=== PATIENT | female | born 1995 | race Caucasian/White ===

== ENCOUNTER 2018-07-09 20:41 | Emergency (ER) | payer SELFPAY ==
[2018-07-09 21:09] VITALS: BP 102/59
[2018-07-09 23:55] LABS: APPEARANCE,URINE CLEAR; BILIRUBIN,URINE NEGATIVE (NEGATIVE); COLOR,URINE YELLOW; GLUCOSE, URINE NEGATIVE (NEGATIVE); KETONES,URINE NEGATIVE (NEGATIVE); LEUKOCYTE ESTERASE,URINE NEGATIVE (NEGATIVE); NITRITE,URINE NEGATIVE (NEGATIVE); PROTEIN,URINE NEGATIVE (NEGATIVE); UROBILINOGEN,URINE NEGATIVE mg/dL (<2.0)
--- NOTE | 2018-07-10 00:12 | RADIOLOGY REPORT (SQ) ---
EXAM DESCRIPTION: US GREATER THAN 14 WEEKS COMPLETED DATE/TME: 07/09/2018 22:32 CLINICAL HISTORY: 22 years Female, abdominal pain in Comparison: None. TECHNIQUE/LIMITATION: Targeted OB sonogram for requested parameters only. FINDINGS: Cardiac activity: 152-bpm. ROBERT: 11.6-cm Placenta: Anterior. No evidence of abruption. No placenta previa. Cervical length: 3.1-cm. Closed appearance. IMPRESSION: Targeted OB sonogram for requested parameters
--- NOTE | 2018-07-10 00:32 | ER Document Report ---
ED General - General Chief Complaint: Pelvic Pain Stated Complaint: ABDOMINAL CRAMPING Time Seen by Provider: 07/09/18 22:25 Notes: Patient is 22-year-old female who is approximately 6 weeks . This is her third . She had a miscarriage early in the first trimester with one . Other went on to having normal vaginal delivery. She says that she is was having some pain earlier today. No vaginal bleeding. No fevers. No vomiting. She said the pain started after she was lifting something. She says now it time she moves or twists she has the same pain and some or in the lower abdomen or pelvic section. No abnormal vaginal discharge. Diarrhea. No urinary frequency. Past Medical History - Social History Smoking Status: Unknown if Ever Smoked Frequency of alcohol use: None Drug Abuse: None Family History: Reviewed & Not Pertinent Patient has suicidal ideation: No Patient has homicidal ideation: No Renal/ Medical History: Denies: Hx Peritoneal Dialysis Review of Systems - Review of Systems Notes: My Normal Review Basic REVIEW OF SYSTEMS: CONSTITUTIONAL : Denies fever, chills, or sweats. Denies recent illness. RESPIRATORY: Denies cough, cold, or chest congestion. Denies shortness of breath, difficulty breathing, or wheezing. GASTROINTESTINAL: Pain in lower abdomen.. Denies nausea, vomiting, or diarrhea. Denies constipation. Last BM: GENITOURINARY: Denies difficulty urinating, painful urination, burning, frequency, or blood in urine. FEMALE GENITOURINARY: Pain in lower abdomen and pelvic region. She is currently . No vaginal bleeding or discharge. MUSCULOSKELETAL: Denies neck or back pain or joint pain or swelling. SKIN: Denies rash or skin lesions. ALL OTHER SYSTEMS REVIEWED AND NEGATIVE. Physical Exam - Vital signs Vitals: Temp Pulse Resp BP Pulse Ox 98.1 F 87 18 102/59 L 100 07/09/18 21:08 07/09/18 21:08 07/09/18 21:08 07/09/18 21:08 07/09/18 21:08 - Notes Notes: General Appearance: Well nourished, alert, cooperative, no acute distress, no obvious discomfort. Well appearing. Vitals: reviewed, See vital signs table. Head: no swelling or tenderness to the head Eyes: PERRL, EOMI, Conjuctiva clear Mouth: No decreasd moisture Lungs: No wheezing, No rales, No rhonci, No accessory muscle use, good air exchange bilaterally. Heart: Normal rate, Regular rythm, No murmur, no rub Abdomen: Normal BS, soft, No rigidity, mild pain to the right and left the suprapubic region to palpation., No guarding, no rebound, no abdominal masses, no organomegaly Extremities: strength 5/5 in all extremities, good pulses in all extremities, no swelling or tenderness in the extremities, no edema. Skin: warm, dry, appropriate color, no rash Neuro: speech clear, oriented x 3, normal affect, responds appropriately to questions. Course - Re-evaluation Re-evalutation: 07/10/18 06:26 The patient safe to be discharged home. Patient is well-appearing. No significant pain on exam. Ultrasound is normal-appearing. Urinalysis negative. I encourage her to avoid sexual activity and heavy lifting. Encouraged her return to ER if she has any vaginal bleeding or increasing pain. Patient agrees with plan will be discharged home. Dictation of this chart was performed using voice recognition software; therefore, there may be some unintended grammatical errors. - Vital Signs Vital signs: Temp Pulse Resp BP Pulse Ox 98.1 F 87 18 102/59 L 100 07/09/18 21:08 07/09/18 21:08 07/09/18 21:08 07/09/18 21:08 07/09/18 21:08 - Laboratory Laboratory results interpreted by me: 07/09/18 23:15 Urine Ascorbic Acid 20 H Discharge - Discharge Clinical Impression: Abdominal pain during Qualifiers: Trimester: second trimester Qualified Code(s): O26.892 - Other specified related conditions, second trimester Condition: Good Disposition: HOME, SELF-CARE Additional Instructions: Please avoid sexual activity for one week. no heavy lifting. Please follow up with an OB physician within one week. Please return to the ER immediately if you develop vaginal bleeding, abnormal discharge, fevers, worsening pain, or feel unwell. Forms: Return to Work Referrals: MARY MUSA MD [ACTIVE STAFF] - Follow up in 3-5 days
== END 2018-07-10 00:51 | disposition home or self-care (01) ==
LOC: ER 20:41
DX: O26.892 Other specified pregnancy related conditions, second trimester (principal); R10.2 Pelvic and perineal pain; Z3A.00 Weeks of gestation of pregnancy not specified; Z87.59 Personal history of other complications of pregnancy, childbirth and the puerperium
CPT/HCPCS: 76805; 81001; 93976; 99284